=== PATIENT | male | born 1995 | race Two or more races ===

== ENCOUNTER 2016-07-16 21:13 | Emergency (ER) | payer OTHER ==
[~2016-07-16] VITALS: Ht 185.4 cm; Wt 75.8 kg
[~2016-07-16 21:13] MED LIST: OLAN5TAB25 PO
[2016-07-16 21:15] VITALS: BP 152/95; PULSE 129; RESP 24; O2SAT 99
[2016-07-16] MEDS ORDERED: PALI6TAB6 PO (21:49)
--- NOTE | 2016-07-16 21:58 | ED.REPORT ---
HPI-Psychiatric Illness Date of Service Jul 16, 2016 ED Provider: Amna Daniels MD A 20 year old male with a history of auditory hallucinations presents to the ED with his parents complaining of worsening anxiety and hallucinations that began earlier today. Patient claims that he is currently experiencing auditory hallucinations. He states that he is "afraid of being tortured", continually repeats that he "ran over a baby's head" and expresses concern that his brother is being harmed. The patient's father reports that the patient has had similar hallucinations about his "loved ones being shot". He recently stopped his medication. Patient has had one previous hospital admission for psych evaluation. He states that he would not like to stay in the hospital tonight. Patient denies any homicidal or suicidal ideation. Nursing Notes Stated Complaint: MENTAL HEALTH Chief Complaint: Psychiatric Complaint Nursing Notes Reviewed: Yes Allergies: Coded Allergies: No Known Allergies (Verified Allergy, Unknown, 08/26/15) Scheduled Paliperidone (Paliperidone ER) 6 Mg Tab.er.24 6 MG PO DAILY General Time Seen by MD: 21:42 Chief Complaint Hallucinations, auditory Hx Obtained From: Patient, Other family... (Parents) Arrived By: Walk-in Onset Occurred: 1 - 4 hours ago Symptom Duration: Since onset Associated with: Reports: Anxiety Additional Notes: Hallucinations Pertinent Negative: Pt denies other symptoms Recent Healthcare: No recent doctor visit, No recent hospitalization Risk-Psychiatric Illness Suicide Risk Stratification RF Statements: Risk factors reviewed Past Medical History Past Medical History History of auditory and visual hallucinations Past Surgical History None reported. Smoking History Current Every Day Smoker Social History Alcohol Use: Denies alcohol use Drug Use: THC Other Social History: Poor social support, Lives with parents Ambulatory Status Independent Review of Systems Constitutional: Denies: Chills, Fever Respiratory: Denies: Shortness of breath GI: Denies: Abdominal pain, Nausea, Vomiting Neurologic: Denies: Change LOC Psychiatric: Reports: Anxiety, Hallucinations, visual, Denies: Homicidal ideation, Suicidal ideation Complete sys rev & neg: except as marked. Physical Exam Initial Vital Signs Vital Signs (First) Date Time Temp Pulse Resp B/P Pulse Ox O2 Delivery O2 Flow Rate FiO2 07/16/16 21:15 37.6 129 24 152/95 99 Room Air Initial VS: Reviewed Head / Eyes: Atraumatic, Normocephalic, PERRL Extremities: Vascular intact, Neuro intact, No swelling, No tenderness Skin: Warm, Dry, No cyanosis General/Constitutional: Awake, Alert Behavior: Positive: Anxious Neurologic: Oriented X3, No motor deficits, No sensory deficits Psychiatric: Not suicidal, Not homicidal Abnormal Mood/Affect: Positive: Anxious, Flat affect Abnormal Thinking / Perception: Positive: Hallucinations, auditory PSYCH: Patient is pacing and speaking softly Respiratory / Chest: Atraumatic, Breath sounds NL, Breath sounds = bilat Cardiovascular: Regular rhythm, Heart sounds NL Heart Rate / Rhythm: Positive: Tachycardia Abdomen: Atraumatic, Soft Interpretation & Diagnostics Lab Results Interpretation Result Diagram: 07/16/16 2211 07/16/16 2211 Test 07/16/16 22:11 07/16/16 22:56 White Blood Count 13.4th/mm3 (3.8-10.1) Red Blood Count 4.87mil/mm3 (4.40-5.80) Hemoglobin 14.8g/dL (13.8-17.2) Hematocrit 42.1% (41.0-50.0) Mean Corpuscular Volume 86.4fL (81-100) Mean Corpuscular Hemoglobin 30.4pg (27.0-35.0) Mean Corpuscular Hemoglobin Concent 35.2% (32.0-37.0) Red Cell Distribution Width 12.3% (12.3-15.4) Platelet Count 197bil/L (150-400) Neutrophils (%) (Auto) 82.3% (40-74) Lymphocytes (%) (Auto) 9.9% (14-46) Monocytes (%) (Auto) 7.4% (4-12) Eosinophils (%) (Auto) 0.1% (0-5) Basophils (%) (Auto) 0.2% (0-3) Sodium Level 140mEq/L (134-144) Potassium Level 4.0mEq/L (3.5-5.2) Chloride Level 99mEq/L (97-108) Carbon Dioxide Level 24mmol/L (18-29) Blood Urea Nitrogen 14mg/dL (6-20) Creatinine 1.02mg/dL (0.76-1.27) Estimat Glomerular Filtration Rate 97mL/min (>59) Glucose Level 187mg/dL (60-99) Calcium Level 10.1mg/dL (8.5-10.1) Total Bilirubin 1.0mg/dL (0.0-1.2) Aspartate Amino Transf (AST/SGOT) 20U/L (0-50) Alanine Aminotransferase (ALT/SGPT) 13U/L (0-44) Alkaline Phosphatase 77U/L (25-150) Total Protein 8.5g/dL (6.4-8.4) Albumin 5.3g/dL (3.4-5.0) Thyroid Stimulating Hormone (TSH) 1.540uIU/mL (0.450-4.500) Hold Erickson Top Tube Received (Received) Alcohol, Quantitative < 10mg/dL (0-10) Hold Urine Received (Received) Lab Results Interpretation: Urine Dipstick Positive: THC Re-Eval/Medical Decision Med Decision/Clinical Course 20-year-old male with past medical history of schizophrenia here very anxious with delusions and auditory hallucinations. Differential diagnosis includes medication noncompliance versus worsening of psychosis versus electrolyte abnormality versus intoxication. Patient is medically cleared and I have discussed the case with the P. At this time, I feel patient is extremely gravely disabled, though he denies suicidality and homicidality. I do not feel that patient is safe to go home. He does not want to be admitted to the hospital, so I am requesting that he be detained involuntarily. Patient was evaluated by [facility] Rolly who agrees that the patient is gravely disabled, however, he has a safe home to go home to with parents. At this time , there is no indication for involuntary psychiatric admission. Patient, the patient's parents, Rolly, and I have all had a long discussion about parents need for involvement in patient's mental health care. They all feel safe going home at this time. They will follow-up with their psychiatrist in the morning. They have been given very strict return precautions that are amenable to discharge. Re-Evaluation/Progress #1: Time of Eval: 00:05 Patient Status: Condition improved Re-Evaluation/Progress Note: Patient is rechecked. Parents are given the updated treatment plan to contact [facility] Re-Evaluation/Progress #2: Time of Eval: 02:04 )( Re-Eval Psychiatric: No danger to self, No danger to others, No suicidal ideation, No homicidal ideation Patient Status: Condition improved Re-Evaluation/Progress Note: Patient is rechecked. Parents understand and agree with the plan to discharge and return for any worsening symptoms. Consultation : Call Returned at: 00:08 [employer] Buncher [employer] Sorter: Will see patient, Agrees with eval, Agrees with plan Note: JADON Lofton Counseled Regarding: Diagnosis, Lab results, Need for follow-up, When/why to return to ED Discharge & Departure Impression: Primary Impression: Paranoia (psychosis) )( Condition at Discharge: No danger to self, No danger to others, No suicidal ideation, No homicidal ideation Disposition: Home Discharge Condition All VS Reviewed: Yes Condition: Stable Additional Instructions: Please be sure to follow up with your psychiatrist as soon as possible. Please take all of your medications as directed. If you develop any suicidal or homicidal feelings, please return immediately to the emergency department. Please try to get sleep this evening and if you feel that you need further care , return to the emergency department at 9:30 tomorrow morning. Referrals: [facility] (PCP) [facility] Scribe Attestation Portions of this note were transcribed by Yamel Wright. I, Dr. Daniels personally performed the history, physical exam and medical decision-making; I reviewed and confirmed the accuracy of the information in the transcribed note. Signed by: Sonido Marsh, 07/17/16 0207 . Amna Daniels MD Jul 16, 2016 21:58 YAMEL WRIGHT Jul 16, 2016 22:09
[2016-07-16 22:17] LABS: BASOPHILS % (AUTO) 0.2 % (0-3); EOSINOPHILS % (AUTO) 0.1 % (0-5); MONOCYTES % (AUTO) 7.4 % (4-12); Mean Corpuscular Hemoglobin 30.4 pg (27.0-35.0); Mean Corpuscular Volume 86.4 fL (81-100); NEUTROPHILS % (AUTO) 82.3 % (40-74); Platelet Count 197 bil/L (150-400)
[2016-07-17 02:29] VITALS: BP 128/83; PULSE 87; RESP 16; O2SAT 96
== END 2016-07-17 02:21 | disposition home or self-care (01) ==
LOC: SED 21:13
DX: F29 Unspecified psychosis not due to a substance or known physiological condition (principal); F20.9 Schizophrenia, unspecified; F17.200 Nicotine dependence, unspecified, uncomplicated
CPT/HCPCS: 36415; 80053; 81002; 82075; 84443; 85025; 99284; G0480